=== PATIENT | male | born 1990 | race Caucasian/White ===

== ENCOUNTER 2025-05-02 11:11 | Emergency (ER) | payer OTHER ==
[2025-05-02] MEDS ORDERED: Naproxen 500 MG TAB ONE (12:02)
== END 2025-05-02 12:17 | disposition home or self-care (01) ==
LOC: NAV ERS 11:11
DX: J02.9 Acute pharyngitis, unspecified (principal); I10 Essential (primary) hypertension
CPT/HCPCS: 74022; 99283